=== PATIENT | female | born 1970 | race Caucasian/White ===

== ENCOUNTER 2018-02-19 11:18 | Emergency (ER) | payer SELFPAY ==
[2018-02-19] MEDS ORDERED: ACETAMINOPHEN 325 MG TABLET PO ONE (11:45)
--- NOTE | 2018-02-19 11:49 | ER Document Report ---
ED Extremity Problem, Lower - General Chief Complaint: Foot Pain Stated Complaint: LEFT FOOT PAIN Time Seen by Provider: 02/19/18 11:29 Mode of Arrival: Ambulatory Information source: Patient Notes: 47-year-old female presents to ED for complaint of left foot pain. She states she tripped over a toy a few months ago. She states she has had pain in the site since then. Patient is alert oriented respirations regular and unlabored speaking in full sentences ambulate with a even steady gait. She does say it hurts when she walks. TRAVEL OUTSIDE OF THE [place] IN LAST 30 DAYS: No - HPI Patient complains to provider of: Pain Location: Foot Occurred: Other - Month ago [facility]/Duration: Persistent Quality of pain: Achy, Dull Severity: Moderate Pain Level: 3 Context: Other - Stepped on a toy about a month ago Associated symptoms: Painful ambulation Exacerbated by: Movement, Walking Relieved by: Nothing - Related Data Allergies/Adverse Reactions: No Known Allergies Allergy (Verified 02/19/18 11:20) Past Medical History - General Information source: Patient - Social History Smoking Status: Current Every Day Smoker Cigarette use (# per day): Yes - ppd Chew tobacco use (# tins/day): No Smoking Education Provided: Yes - 4min Frequency of alcohol use: Social Drug Abuse: None Lives with: Alone Family History: Reviewed & Not Pertinent Patient has suicidal ideation: No Patient has homicidal ideation: No - Past Medical History Cardiac Medical History: Reports: None Pulmonary Medical History: Reports: None EENT Medical History: Reports: None Neurological Medical History: Reports: None Endocrine Medical History: Reports: None Renal/ Medical History: Reports: None Malignancy Medical History: Reports: None GI Medical History: Reports: None Musculoskeltal Medical History: Reports None Skin Medical History: Reports None Psychiatric Medical History: Reports: None Traumatic Medical History: Reports: None Infectious Medical History: Reports: None Past Surgical History: Reports: Hx Cholecystectomy, Hx Tonsillectomy, Hx Tubal Ligation - Immunizations Hx Diphtheria, Pertussis, Tetanus Vaccination: Yes Review of Systems - Review of Systems Constitutional: No symptoms reported EENT: No symptoms reported Cardiovascular: No symptoms reported Respiratory: No symptoms reported Gastrointestinal: No symptoms reported Genitourinary: No symptoms reported Female Genitourinary: No symptoms reported Musculoskeletal: Other - Left foot pain Skin: No symptoms reported Hematologic/Lymphatic: No symptoms reported Neurological/Psychological: No symptoms reported -: Yes All other systems reviewed and negative Physical Exam - Vital signs Vitals: Temp Pulse Resp BP Pulse Ox 98.3 F 87 20 148/95 H 95 02/19/18 11:21 02/19/18 11:21 02/19/18 11:21 02/19/18 11:21 02/19/18 11:21 Interpretation: Normal - General General appearance: Appears well, Alert - HEENT Head: Normocephalic, Atraumatic Eyes: Normal Pupils: PERRL - Respiratory Respiratory status: No respiratory distress Chest status: Nontender Breath sounds: Normal Chest palpation: Normal - Cardiovascular Rhythm: Regular Heart sounds: Normal auscultation Murmur: No - Abdominal Inspection: Normal Distension: No distension Bowel sounds: Normal Tenderness: Nontender Organomegaly: No organomegaly - Back Back: Normal, Nontender - Extremities General upper extremity: Normal inspection, Nontender, Normal color, Normal ROM , Normal temperature General lower extremity: Normal inspection, Normal color, Normal ROM, Normal temperature, Normal weight bearing. No: Talon's sign Foot: Tender, Metatarsal compress. pain, No evidence of FB. No: Abrasion, Deformity, Ecchymosis, Edema, Instability, Laceration, Nail injury, Navicular tenderness, Puncture wound, Tender 5th metatarsal, Unable to bear weight - Painful to walk - Neurological Neuro grossly intact: Yes Cognition: Normal Orientation: AAOx4 Denilson Coma Scale Eye Opening: Spontaneous Shasta Coma Scale Verbal: Oriented Shasta Coma Scale Motor: Obeys Commands Shasta Coma Scale Total: 15 Speech: Normal Motor strength normal: LUE, RUE, LLE, RLE Sensory: Normal - Psychological Associated symptoms: Normal affect, Normal mood - Skin Skin Temperature: Warm Skin Moisture: Dry Skin Color: Normal Course - Re-evaluation Re-evalutation: 02/19/18 15:40 Trace discussed with patient and written report of x-rays given the patient to follow-up with her primary doctor orthopedics and a psychiatric assistant. Patient was given instructions on ice and ibuprofen. - Vital Signs Vital signs: Temp Pulse Resp BP Pulse Ox 98.3 F 76 16 138/73 H 96 02/19/18 11:21 02/19/18 13:16 02/19/18 13:16 02/19/18 13:16 02/19/18 13:16 - Diagnostic Test Radiology reviewed: Image reviewed, Reports reviewed Discharge - Discharge Clinical Impression: Left foot pain, Bone spur of left foot Condition: Stable Disposition: HOME, SELF-CARE Additional Instructions: You were seen today for pain in the left foot There are no radiological signs or symptoms of any injury to this foot. Your x-ray was discussed with you and a written report of the x-ray given to you to follow-up with a psychiatric assistant. Your x-ray does show that you have some sparing to the bones in your foot. Anti-inflammatories and ice will help this pain until you can follow-up with a psychiatric assistant. Plantar Fasciitis or Heel Spur Plantar fasciitis is an inflammation of a ligament on the underside of the foot. It can be caused by injury, overuse such as running, or poorly fitting shoes. There may be a bone spur on the heel if inflammation has persisted a long time. Plantar fasciitis is treated with stretching exercises and antiinflammatory medicine. More severe cases may require injection of cortisone. It may take several weeks to get better. If nothing gives relief, an operation to remove the heel spur may help. Call or return if there is redness, increasing pain, swelling, fever, or any other new symptoms. Exercises for the Foot Muscles Stretching and strengthening of the foot muscles is an important part of recovery from injury, as well as in treatment and prevention of overuse syndromes like plantar fasciitis. TOWEL CURLS: Put your foot on a dry towel. Curl your toes to pick it up, then drop it. As it becomes easier, use a heavier towel. Repeat 20 times, twice daily. CLEMENTE CURLS: Lift and turn your knee, so your foot is against the opposite leg about mid-clemente. Try to "grab" the entire clemente bone with your toes, while moving your foot up and down the leg for one minute. Repeat twice daily. TOE LIFTS: Put your opposite foot over your 2nd to 5th toes. Now lift the toes up, pushing the other foot upward. Repeat 10 times, twice daily. Repeat using the large toe. EVERSIONS: Cross the opposite foot over, placing the heel just behind the 4th and 5th toes. Try to lift up the outside of the bottom foot. Hold 10 seconds. Repeat twice daily. Ibuprofen Ibuprofen is an excellent, safe drug for pain control. In addition, it has potent antiinflammatory effects which are beneficial, especially in the treatment of injuries, arthritis, or tendonitis. It's best to take ibuprofen with food. Persons with ulcer disease or allergy to aspirin should notify their physician of this before taking ibuprofen. Take the medication exactly as prescribed. Don't take additional doses unless instructed to do so by your doctor. If you develop wheezing, shortness of breath, hives, faintness, stomach pain, vomiting, or dark black stools, return for re-evaluation at once. Ice Packs Apply ice packs frequently against the painful area. Many different schedules are recommended, such as "20 minutes on, 20 minutes off" or "one hour ice, two hours rest." If you need to work, you may need to go longer between ice treatments. You should plan to have the area ice packed AT LEAST one fourth of the time. The ice should be applied over the wrap, tape, or splint, or over a layer of cloth -- not directly against the skin. Some ice bags have a built-in cloth and can be put directly on the skin. FOLLOW-UP CARE: If you have been referred to a physician for follow-up care, call the physician s office for an appointment as you were instructed or within the next two days. If you experience worsening or a significant change in your symptoms, notify the physician immediately or return to the Emergency Department at any time for re-evaluation. Prescriptions: Ibuprofen 800 mg PO Q8HP PRN #20 tablet PRN Reason: Forms: Elevated Blood Pressure, Smoking Cessation Education, Return to Work Referrals: RUDDY MURPHY DPM [ACTIVE STAFF] - Follow up as needed
--- NOTE | 2018-02-19 12:39 | RADIOLOGY REPORT (SQ) ---
EXAM DESCRIPTION: FOOT LEFT COMPLETE COMPLETED DATE/TIME: 02/19/2018 12:00 pm REASON FOR STUDY: pain possible injury month ago stepped on a toy, continued diffuse foot pain for 1 month COMPARISON: None. NUMBER OF VIEWS: Three views. TECHNIQUE: AP, lateral and oblique radiographic images acquired of the left foot. LIMITATIONS: None. FINDINGS: MINERALIZATION: Normal. BONES: No acute fracture or dislocation. Moderate-sized plantar and dorsal calcaneal spurs. JOINTS: No effusions. Mild bony spurring at the navicular-cuneiform joints. SOFT TISSUES: No soft tissue swelling. No foreign body. OTHER: No other significant finding. IMPRESSION: No acute fracture. No radiopaque foreign body. No soft tissue gas. TECHNICAL DOCUMENTATION: JOB ID: [id number] [employer]- All Rights Reserved Reading location - IP/workstation name: [email or web address]
[2018-02-19 13:17] VITALS: BP 138/73
== END 2018-02-19 13:18 | disposition home or self-care (01) ==
LOC: ER 11:18
DX: M79.672 Pain in left foot (principal); M77.32 Calcaneal spur, left foot; F17.210 Nicotine dependence, cigarettes, uncomplicated; Z98.51 Tubal ligation status
CPT/HCPCS: 99283; 99406

== ENCOUNTER 2019-07-19 08:06 | Emergency (ER) | payer MEDICAID ==
--- NOTE | 2019-07-19 09:28 | RADIOLOGY REPORT (SQ) ---
EXAM DESCRIPTION: CHEST 2 VIEWS COMPLETED DATE/TIME: 07/19/2019 9:18 am REASON FOR STUDY: cough COMPARISON: None. EXAM PARAMETERS: NUMBER OF VIEWS: two views TECHNIQUE: Digital Frontal and Lateral radiographic views of the chest acquired. RADIATION DOSE: NA LIMITATIONS: none FINDINGS: LUNGS AND PLEURA: Minimal ill-defined retrocardiac opacities. No dense consolidation. No pleural effusion or pneumothorax. MEDIASTINUM AND HILAR STRUCTURES: No masses or contour abnormalities. HEART AND VASCULAR STRUCTURES: Heart normal size. No evidence for failure. BONES: No acute findings. HARDWARE: None in the chest. OTHER: No other significant finding. IMPRESSION: Minimal ill-defined retrocardiac opacities, possibly airspace disease. No significant e ffusion. TECHNICAL DOCUMENTATION: JOB ID: [id number] [employer]- All Rights Reserved Reading location - IP/workstation name: [email or web address]
[2019-07-19] MEDS ORDERED: IPRATROPIUM/ALBUTEROL 0.5-2.5 MG/3 ML AMPUL NEB ONE (09:44)
[2019-07-19] MEDS ORDERED: BENZONATATE 100 MG CAPSULE PO ONE (09:44)
--- NOTE | 2019-07-19 09:51 | ER Document Report ---
HPI - HPI Time Seen by Provider: 07/19/19 09:17 Pain Level: 3 Context: Patient is a 48-year-old female who presents to the emergency department with a chief complaint of cough. Patient reports she has had a dry cough that has been persistent for about 1 week. Patient reports she has had runny nose and minimal diarrhea. Patient reports she does smoke 1 pack/day. Patient reports she does have seasonal allergies but does not currently take any medication. Patient reports she has been attempting to use DayQuil, [id number] cough drops and her child's albuterol inhaler without much relief. Patient denies fever. Patient denies sore throat. Patient denies ear pain. Patient reports bilateral rib pain from her cough. Patient denies a history of respiratory problems. - CONSTITUTIONAL Constitutional: DENIES: Fever, Chills - EENT EENT: DENIES: Sore Throat - REPRODUCTIVE Reproductive: DENIES: : Past Medical History - General Information source: Patient - Social History Smoking Status: Current Every Day Smoker Chew tobacco use (# tins/day): No Frequency of alcohol use: Occasional Drug Abuse: None Lives with: Family Family History: Reviewed & Not Pertinent Patient has suicidal ideation: No Patient has homicidal ideation: No - Past Medical History Cardiac Medical History: Reports: None Pulmonary Medical History: Reports: None EENT Medical History: Reports: None Neurological Medical History: Reports: None Endocrine Medical History: Reports: None Renal/ Medical History: Reports: None. Denies: Hx Peritoneal Dialysis Malignancy Medical History: Reports: None GI Medical History: Reports: None Musculoskeletal Medical History: Reports None Psychiatric Medical History: Reports: None Traumatic Medical History: Reports: None Infectious Medical History: Reports: None Past Surgical History: Reports: Hx Cholecystectomy, Hx Tonsillectomy, Hx Tubal Ligation - Immunizations Hx Diphtheria, Pertussis, Tetanus Vaccination: Yes Vertical Provider Document - CONSTITUTIONAL Agree With Documented VS: Yes Exam Limitations: No Limitations General Appearance: No Apparent Distress - INFECTION CONTROL TRAVEL OUTSIDE OF THE [place] IN LAST 30 DAYS: No - HEENT HEENT: Atraumatic, Normal ENT Exam, Normocephalic, PERRLA - NECK Neck: Normal Inspection - RESPIRATORY Notes: Scattered rhonchi noted throughout lungs bilaterally and throughout all lobes. Some rhonchi does clear with cough. - CARDIOVASCULAR Cardiovascular: Regular Rate, Regular Rhythm - GI/ABDOMEN Gastrointestinal: Abdomen Soft, Abdomen Non-Tender, Normal Bowel Sounds - MUSCULOSKELETAL/EXTREMETIES Musculoskeletal/Extremeties: FROM - NEURO Level of Consciousness: Awake, Alert, Appropriate - DERM Integumentary: Warm, Dry, No Rash Course - Vital Signs Vital signs: Temp Pulse Resp BP Pulse Ox 98.6 F 95 18 156/109 H 93 07/19/19 08:15 07/19/19 08:15 07/19/19 08:15 07/19/19 08:15 07/19/19 08:15 - Diagnostic Test Radiology reviewed: Reports reviewed Radiology results interpreted by me: 07/19/19 09:48 Chest X-Ray 07/19/19 00:00 IMPRESSION: Minimal ill-defined retrocardiac opacities, possibly airspace disease. No significant effusion. Discharge - Discharge Clinical Impression: Bronchitis, Cough Condition: Stable Disposition: HOME, SELF-CARE Additional Instructions: Today you were seen in emergency department for a cough. Your chest x-ray did not show definitive pneumonia but did show a opacity which could mean chronic disease, airspace disease such as COPD or a pneumonia. I will treat you for pneumonia. It is important that you follow-up with your primary care physician if your symptoms do not improve and to receive a repeat chest x-ray for improvement of this opacity. You are being placed on oral antibiotics as well as oral prednisone. Prednisone is a steroid. Please take this because it is for your cough. Please return to emergency department if you develop a fever, severe chest pain, shortness of breath, dizziness or any new or worsening symptoms. BRONCHITIS: You have acute bronchitis. This disease is an infection or inflammation of the air passageways in your lungs. Symptoms usually include cough, low grade fever, shortness of breath, and wheezing. The cough usually persists for a couple of weeks. Most cases of bronchitis get better without antibiotics. We prescribe antibiotics when we believe bacteria are damaging your airways, or if there's high risk the bronchitis will worsen into pneumonia. Increase your fluid intake. A cool mist humidifier may make your lungs more comfortable. An expectorant (cough medicine that loosens phlegm) can help. If you smoke, STOP!!! Recovery from bronchitis can be somewhat slow, but you should see improvement within a day or two. Repeated episodes of bronchitis may result in lung damage -- for example, chronic bronchitis, recurrent pneumonias, or emphysema. Call the doctor if you develop increasing fever, shortness of breath, chest pain, bloody sputum, or otherwise worsen. If you have not improved at all after several days, contact the physician. BRONCHITIS WITH BRONCHOSPASM (WHEEZING): You have bronchitis with bronchospasm (wheezing). Sometimes people develop wheezing with a chest cold. This occurs either because of an underlying tendency toward asthma or because the virus itself irritates the bronchial tubes. This irritation causes cough, shortness of breath, and wheezing. Emergency treatment of bronchospasm may include adrenaline shots or bronchodilator aerosol. You may feel lightheaded and have a rapid pulse for an hour or two. Rest and get plenty of fluids. At home, we'll treat you with a bronchodilator inhaler. Corticosteroids may be required for some patients. Until you recover, avoid chemical fumes, dusts, pollens, and exercising in very cold or dry air. If you smoke, stop now! Most cases of bronchitis get better without antibiotics. We prescribe antibiotics when we believe bacteria are damaging your airways, or if there's high risk the bronchitis will worsen into pneumonia. Increase your fluid intake. A cool mist humidifier may make your lungs more comfortable. An expectorant (cough medicine that loosens phlegm) can help. Repeated episodes of bronchitis and bronchospasm may result in lung damage -- for example, chronic bronchitis, recurrent pneumonias, or emphysema. If you develop a fever, increased wheezing, chest pain, or severe shortness of breath, you should contact the doctor immediately. DECONGESTANT MEDICATION: A decongestant medicine has been prescribed. Often this medicine is combined in the same tablet with an antihistamine or expectorant. This type of medicine is helpful in treating a bad cold or sinus condition, as well as in treatment of the nasal congestion of hay fever. It is not of much benefit for lung infections. Decongestant medicines are related to stimulants. They can cause an increase in blood pressure and heart rate. Persons with heart disease and high blood pressure should not take decongestants without discussing this with the physician. If you develop palpitations, chest pain, headache, or tremors, stop the medicine and consult your physician. COUGH-SUPPRESSANT & EXPECTORANT MEDICATION: You are to use a cough medication as needed for relief of symptoms. This medicine is a combination of an expectorant (to make the mucous thinner and more easily "coughed up") and a cough suppressant (to reduce the frequency of coughing). The cough-suppressant medicine is related to narcotics. You may experience mild nausea and sleepiness. Some patients who are very sensitive to narcotics may have stomach pain from this medicine. Taking the medicine with food reduces these side effects. Do not drive or work with machinery until you know how this medicine affects you. The expectorant should have no side effects. Iodine-containing expectorants (such as organidin) should not be taken by persons with active thyroid disease unless approved by your doctor. Call the doctor if you develop shortness of breath, hives, rash, itching, lightheadedness, or severe nausea and vomiting. INHALED BRONCHODILATORS: You have received a treatment of and/or prescription for an inhaled bronchodilator -- a medication which stimulates the airways in the lung to dilate. This improves the flow of air in asthma, bronchitis, and emphysema. These medicines have some similarity to adrenaline, and can cause similar side effects: shakiness, racing heart, and a sense of nervousness. These side effects decrease with time. Contact your doctor if these side effects are severe. Do not over-use the medicine. Too-frequent use of the inhaler may make it ineffective. Call your doctor if the inhaler is not controlling your symptoms at the prescribed doses. STEROID MEDICATION: You have been given an injection of or oral medicine of the cortisone/steroid class. This medication is used to control inflammation or allergy. Homar t is usually only given for a short period of time, until the acute process subsides. There are usually no side effects from short-term use of cortisone-like medications. Some persons feel an increased sense of well-being and are not sleepy at bedtime. Long-term use of cortisone medications is best avoided, unless required for a severe condition. If your condition does not remit, or relapses after the course of corticosteroid medication, you should consult your physician. ANTIBIOTIC THERAPY: You have been given an antibiotic prescription. It's important that you take all the medication, unless instructed otherwise by your physician. Failure to complete the entire course can result in relapse of your condition. Common side effects of antibiotics include nausea, intestinal cramping, or diarrhea. Women may develop vaginal yeast infections, and babies can get yeast (thrush) in the mouth following the use of antibiotics. Contact your physician if you develop significant side effects from this medication. Allergy to this antibiotic can result in hives, wheezing, faintness, or itching. If symptoms of allergy occur, stop the medication and call your doctor. AZITHROMYCIN: Azithromycin (Zithromax) is a broad spectrum antibiotic in the same class as erythromycin. It can treat a variety of bacterial infections, but is most frequently used for respiratory infections. Azithromycin is extremely long-lasting. It accumulates in body tissues and continues to kill bacteria for many days. In order to improve absorption, Azithromycin should be taken at least one hour before or two hours after a meal. It does not have the same strong t endency to upset the stomach as erythromycin and is usually very well tolerated. Patients who have had a rash or other true allergic reactions to erythromycin should not take this medication. Call if you develop gastrointestinal distress, severe diarrhea, rash, hives, itching, or shortness of breath. USE OF ACETAMINOPHEN (Tylenol): Acetaminophen may be taken for pain relief or fever control. It's much safer than aspirin, offering a wider range of "safe" dosages. It is safe during . Some brand names are Tylenol, Panadol, Datril, Anacin 3, Tempra, and Liquiprin. Acetaminophen can be repeated every four hours. The following are maximum recommended dosages: >89 pounds or adults 650 mg to 900 mg Acetaminophen can be repeated every four hours. Maximum dose not to exceed 4000 mg a day. SMOKING: If you smoke, you should stop smoking. The tar and chemicals in cigarette smoke are harmful. Smoking has been shown to cause: emphysema chronic bronchitis lung cancer mouth and throat cancer stomach and pancreas cancer premature aging defects In addition, smoking increases ear and lung infections in children of smokers. FOLLOW-UP CARE: If you have been referred to a physician for follow-up care, call the physicians office for an appointment as you were instructed or within the next two days. If you experience worsening or a significant change in your symptoms, notify the physician immediately or return to the Emergency Department at any time for re-evaluation. Prescriptions: Benzonatate [Tessalon Perles 100 mg Capsule] 100 mg PO Q8HP PRN #21 capsule PRN Reason: Prednisone [Deltasone 10 mg Tablet] 10 mg PO ASDIR PRN #21 tablet PRN Reason: Doxycycline Hyclate 100 mg PO BID 5 Days #10 capsule Forms: Smoking Cessation Education Referrals: DANUTA AMIN FNP-C [Primary Care Provider] - Follow up as needed
[2019-07-19] MEDS ORDERED: ALBUTEROL SULFATE HFA (90 MCG/PUFF) 8 GM MDI (1 MDI/ER DISP) IH PRN (09:54)
[2019-07-19 10:40] VITALS: BP 153/86
== END 2019-07-19 10:40 | disposition home or self-care (01) ==
LOC: ER 08:06
DX: J40 Bronchitis, not specified as acute or chronic (principal); R05 Cough; R19.7 Diarrhea, unspecified; R09.81 Nasal congestion; F17.200 Nicotine dependence, unspecified, uncomplicated
CPT/HCPCS: 71046; J3490 ×2; J7620; 94640; 99283

== ENCOUNTER → 2020-07-16 | Outpatient (CLI) | payer MEDICAID ==
[2020-07-16 15:49] LABS: ABSOLUTE BASOPHILS # (AUTO) 0.1 10^3/uL (0.0-0.2); ABSOLUTE EOSINOPHILS # (AUTO) 0.2 10^3/uL (0.0-0.6); ABSOLUTE LYMPHOCYTES (AUTO) 2.1 10^3/uL (0.5-4.7); ABSOLUTE MONOCYTES (AUTO) 0.9 10^3/uL (0.1-1.4); ABSOLUTE NEUT (AUTO) 8.4 10^3/uL (1.7-8.2); BASOPHILS % (AUTO) 0.9 % (0-2); EOSINOPHILS % (AUTO) 1.3 % (0-6); HEMATOCRIT 42.5 % (36.0-47.0); HEMOGLOBIN 14.6 g/dL (12.0-15.5); LYMPHOCYTES % (AUTO) 17.9 % (13-45); MEAN CORPUSCULAR HEMOGLOBIN 30.7 pg (27.0-33.4); MEAN CORPUSCULAR HGB CONC 34.2 g/dL (32.0-36.0); MEAN CORPUSCULAR VOLUME 90 fl (80-97); MONOCYTES % (AUTO) 7.4 % (3-13); PLATELET COUNT 262 10^3/uL (150-450); RED BLOOD COUNT 4.74 10^6/uL (3.72-5.28); RED CELL DISTRIBUTION WIDTH 14.7 % (11.5-14.0); SEGMENTED NEUTROPHILS % (AUTO) 72.5 % (42-78); TOTAL CELLS COUNTED % (AUTO) 100 %; WHITE BLOOD COUNT 11.6 10^3/uL (4.0-10.5)
--- NOTE | 2020-07-16 15:50 | RADIOLOGY REPORT (SQ) ---
EXAM DESCRIPTION: KUB/ABDOMEN (SINGLE VIEW) IMAGES COMPLETED DATE/TIME: 07/16/2020 3:22 pm REASON FOR STUDY: LOWER ABD PAIN R10.30 LOWER ABDOMINAL PAIN, UNSPECIFIED COMPARISON: None. NUMBER OF VIEWS: One view. TECHNIQUE: 2 supine radiographic images of the abdomen acquired. LIMITATIONS: None. FINDINGS: BOWEL GAS PATTERN: Nonobstructive bowel gas pattern. No dilated loops. CALCIFICATIONS: No suspicious calcifications. SOFT TISSUES: The visualized liver appears enlarged. HARDWARE: Surgical clips at the right upper quadrant. Tubal ligation devices at the pelvis. BONES: No acute findings. IMPRESSION: 1. Nonobstructive bowel gas pattern. 2. The visualized liver appears enlarged. TECHNICAL DOCUMENTATION: JOB ID: [id number] [employer]- All Rights Reserved Reading location - IP/workstation name: [email or web address]
[2020-07-16 16:11] LABS: ALBUMIN 4.4 g/dL (3.5-5.0); ALKALINE PHOSPHATASE 54 U/L (38-126); ANION GAP 11 (5-19); ASPARTATE AMINO TRANSFERASE 21 U/L (14-36); BILIRUBIN,DIRECT 0.1 mg/dL (0.0-0.4); BILIRUBIN,TOTAL 0.4 mg/dL (0.2-1.3); BLOOD UREA NITROGEN 13 mg/dL (7-20); CALCIUM 9.9 mg/dL (8.4-10.2); CARBON DIOXIDE 24 mmol/L (22-30); CHLORIDE 105 mmol/L (98-107); GLUCOSE 103 mg/dL (75-110); POTASSIUM 4.2 mmol/L (3.6-5.0); TOTAL PROTEIN 7.3 g/dL (6.3-8.2)
== END ==
LOC: LAB 15:06
PROVIDERS: ATTEND Nurse Practitioner Acute Care
DX: R10.30 Lower abdominal pain, unspecified (principal)
CPT/HCPCS: 36415; 74018; 80053; 83690; 85025

== ENCOUNTER → 2020-08-23 | Outpatient (CLI) | payer MEDICAID ==
--- NOTE | 2020-08-24 13:09 | WOMENS IMAGING REPORT ---
EXAM DESCRIPTION: TRANSVAGINAL ULTRASOUND IMAGES COMPLETED DATE/TIME: 08/23/2020 12:42 pm REASON FOR STUDY: R10.33 PERIUMBILICAL PAIN R10.33 PERIUMBILICAL PAIN LMP 2 years prior COMPARISON: None. TECHNIQUE: Dynamic and static grayscale images acquired of the pelvis via transvaginal approach and recorded on PACS. Additional selected color Doppler and spectral images recorded. LIMITATIONS: Body habitus. FINDINGS: UTERUS: Contour normal. No mass. ENDOMETRIAL STRIPE: Thickened. CERVIX: No nabothian cysts. RIGHT OVARY AND DOPPLER: Ovary not seen. LEFT OVARY AND DOPPLER: Ovary not seen. FREE FLUID: None noted. OTHER: No other significant finding. MEASUREMENTS: UTERUS: 10.9 x 6.6 x 7.3 cm. ENDOMETRIAL STRIPE: 2.2 cm RIGHT OVARY: Ovary not seen. LEFT OVARY: Ovary not seen. IMPRESSION: Significantly thickened endometrium. TECHNICAL DOCUMENTATION: JOB ID: [id number] 2010 [employer]- All Rights Reserved Rev-01/23 Reading location - IP/workstation name: [email or web address]
== END ==
LOC: RAD 11:17
PROVIDERS: ATTEND Nurse Practitioner Family
DX: R10.33 Periumbilical pain (principal)
CPT/HCPCS: 76830